=== PATIENT | female | born 1990 ===

== ENCOUNTER 2020-06-25 15:20 | Inpatient (IN) ==
[2020-06-25] MEDS ORDERED: *HR* FentaNYL (PF) 100 MCG/2 ML VIAL IVP PRN (15:37)
[2020-06-25] MEDS ORDERED: Lidocaine 1% 20 ML MDV INFILT PRN (15:37)
[2020-06-25] MEDS ORDERED: Metoclopramide 10 MG/2 ML VIAL IVP PRN (15:37)
[2020-06-25] MEDS ORDERED: Famotidine 20 MG/2 ML VIAL IVP PRN (15:37)
[2020-06-25] MEDS ORDERED: Ondansetron 4 MG/2 ML VIAL IVP PRN (15:37)
[2020-06-25] MEDS ORDERED: Naloxone 0.4 MG/ML INJ IVP PRN (15:37)
[2020-06-25] MEDS ORDERED: Ringers Solution, Lactated 1,000 ML IVC SCH (15:45)
[2020-06-25] MEDS ORDERED: *HR* Labetalol 20 MG/4 ML SYRINGE IVP ONE ×7 (15:46→18:18)
[2020-06-25 16:18] LABS: Basophils # 0.1 K/mcL (0.0-0.2); Basophils % 0.6 %; Eosinophils # 0.1 K/mcL (0.0-0.6); Eosinophils % 1.1 %; Hematocrit 40.2 % (35.3-44.9); Hemoglobin 13.5 g/dL (11.5-15.4); Immature Granulocytes % 0.3 % (0-4); Lymphocytes # 2.2 K/mcL (0.6-4.6); Lymphocytes % 23.5 %; Mean Corpuscular HGB Conc 33.6 g/dL (31.6-35.5); Mean Corpuscular Hemoglobin 32.5 pg (28.0-33.3); Mean Corpuscular Volume 96.9 fL (83.0-100.0); Mean Platelet Volume 12.1 fL (9.4-12.4); Monocytes # 0.8 K/mcL (0.0-1.3); Monocytes % 8.5 %; Neutrophils # 6.2 K/mcL (1.6-8.9); Platelet Count 152 K/mcL (140-400); Red Blood Count 4.15 M/mcL (3.82-4.97); Red Cell Distribution Width 12.8 % (11.5-14.5); White Blood Count 9.4 K/mcL (4.3-11.1)
[2020-06-25 16:22] LABS: Protein/Creatinine Ratio,Urine 2.9 mg/mg (0.00-0.20)
[2020-06-25 16:23] LABS: Amphetamine Screen,Urine Negative ng/mL (Cutoff=1000); Barbiturate Screen,Urine Negative ng/mL (Cutoff=200); Benzodiazepines Screen,Urine Negative ng/mL (Cutoff=200); Cannabinoid Screen,Urine Negative ng/mL (Cutoff = 50); Cocaine Screen,Urine Negative ng/mL (Cutoff= 300); Opiate Screen,Urine Negative ng/mL (Cutoff=300); Phencyclidine Screen,Urine Negative ng/mL (Cutoff=25)
[2020-06-25 16:36] LABS: Alanine Aminotransferase 29 Units/L (7-52); Aspartate Amino Transferase 39 Units/L (13-39); BUN/Creatinine Ratio 17 (6-26); Blood Urea Nitrogen 11 mg/dL (6-20); Lactate Dehydrogenase 268 Units/L (140-271); Uric Acid 5.5 mg/dL (2.3-7.6); eGFR For African Americans > 60 (> 60); eGFR For Non-African Americans > 60 (> 60)
[2020-06-25] MEDS ORDERED: Calcium Gluconate 1,000 MG/10 ML VIAL ONE (16:48)
[2020-06-25] MEDS: Magnesium Sulf 20 gm/SW 500mL 20 GM/500 ML IV.SOLN IVC SCH (16:50)
[2020-06-25] MEDS ORDERED: miSOPROStoL 25 MCG TABLET PO SCH (17:30)
[2020-06-25] MEDS ORDERED: *HR* FentaNYL (PF) 100 MCG/2 ML VIAL EP ONE (20:01)
[2020-06-25] MEDS ORDERED: EPHEDrine 50 MG/ML VIAL IVP PRN (20:01)
[2020-06-25] MEDS ORDERED: Bupivacaine-MPF 0.25% 10 ML VIAL EP ONE (20:01)
[2020-06-25] MEDS ORDERED: Epidural Premix (fent/bupiv) 110 ML EP SCH (20:15)
[2020-06-25] MEDS ORDERED: Oxytocin 20 units/ LR 1000 mL 20 UNIT/1,000 ML BAG IVC SCH ×2 (20:30→23:30)
[2020-06-26] MEDS: Magnesium Sulf 20 gm/SW 500mL 20 GM/500 ML IV.SOLN IVC SCH ×3 (02:44→21:36)
[2020-06-26] MEDS ORDERED: Oxytocin 20 units/ LR 1000 mL 20 UNIT/1,000 ML BAG IVC SCH (08:45)
[2020-06-26] MEDS ORDERED: Oxytocin 20 units/ LR 1000 mL 20 UNIT/1,000 ML BAG IVC ONE (08:45)
[2020-06-26] MEDS ORDERED: Acetaminophen 325 MG TABLET PO PRN (08:45)
[2020-06-26] MEDS ORDERED: Rho Immune Globulin 1,500 UNIT SYRINGE IM PRN (08:45)
[2020-06-26] MEDS ORDERED: Measles/Mumps/Rubella Vacc 0.5 ML VIAL SQ PRN (08:45)
[2020-06-26] MEDS: Prenatal Vit/FA 1 EACH TABLET PO SCH (09:27)
[2020-06-26] MEDS: NIFEdipine XL (24 HR) 60 MG TAB.ER.24 PO SCH (14:42)
[2020-06-26] MEDS ORDERED: Benzocaine/Menthol 56 GM AEROSOL SPRAY TP PRN (14:48)
[2020-06-26] MEDS: Ibuprofen 600 MG TABLET PO PRN (21:38)
[2020-06-27 05:26] LABS: Basophils % 0.3 %; Eosinophils # 0.1 K/mcL (0.0-0.6); Eosinophils % 0.7 %; Hematocrit 33.8 % (35.3-44.9); Immature Granulocytes % 0.6 % (0-4); Lymphocytes # 1.5 K/mcL (0.6-4.6); Lymphocytes % 14.1 %; Mean Corpuscular HGB Conc 34.3 g/dL (31.6-35.5); Mean Corpuscular Hemoglobin 33.3 pg (28.0-33.3); Mean Corpuscular Volume 97.1 fL (83.0-100.0); Monocytes # 0.6 K/mcL (0.0-1.3); Monocytes % 5.7 %; Neutrophils # 8.3 K/mcL (1.6-8.9); Platelet Count 143 K/mcL (140-400); Red Blood Count 3.48 M/mcL (3.82-4.97); Red Cell Distribution Width 13.3 % (11.5-14.5); Segmented Neutrophils % 78.6 %; White Blood Count 10.5 K/mcL (4.3-11.1)
[2020-06-27 05:28] LABS: Hemoglobin 11.6 g/dL (11.5-15.4)
[2020-06-27 05:47] LABS: Alanine Aminotransferase 21 Units/L (7-52); Aspartate Amino Transferase 26 Units/L (13-39); BUN/Creatinine Ratio 16 (6-26); Blood Urea Nitrogen 9 mg/dL (6-20); Lactate Dehydrogenase 338 Units/L (140-271); Uric Acid 5.1 mg/dL (2.3-7.6); eGFR For African Americans > 60 (> 60); eGFR For Non-African Americans > 60 (> 60)
[2020-06-27] MEDS: NIFEdipine XL (24 HR) 60 MG TAB.ER.24 PO SCH (09:53)
[2020-06-27] MEDS: Prenatal Vit/FA 1 EACH TABLET PO SCH (09:54)
[2020-06-27] MEDS: Ibuprofen 600 MG TABLET PO PRN ×2 (09:55→17:25)
[2020-06-27 22:13] VITALS: BP 111/77
[2020-06-28] MEDS: NIFEdipine XL (24 HR) 60 MG TAB.ER.24 PO SCH (08:26)
[2020-06-28] MEDS: Prenatal Vit/FA 1 EACH TABLET PO SCH (08:26)
== END 2020-06-28 15:49 | disposition home or self-care (01) | DRG 807 ==
LOC: 1NENULAB 15:20 → 1NENUOBS 06-26 08:38
PROVIDERS: ADMIT Obstetrics & Gynecology; ATTEND Obstetrics & Gynecology